=== PATIENT | male | born 1995 | race Caucasian/White ===

== ENCOUNTER 2019-06-21 12:35 | Emergency (ER) | payer MEDICAID ==
[~2019-06-21] VITALS: Ht 162.6 cm; Wt 72.7 kg
[2019-06-21] MEDS ORDERED: HEART MEDICATIONS PO (12:53)
[2019-06-21 16:12] VITALS: BP 131/76
== END 2019-06-21 16:43 | disposition home or self-care (01) ==
LOC: EMS 12:41
DX: T59.891A Toxic effect of other specified gases, fumes and vapors, accidental (unintentional), initial encounter (principal); I10 Essential (primary) hypertension; Z79.899 Other long term (current) drug therapy; Y92.89 Other specified places as the place of occurrence of the external cause
CPT/HCPCS: 93005

== ENCOUNTER 2021-07-12 02:06 | Emergency (ER) | payer SELFPAY ==
[~2021-07-12] VITALS: Ht 172.7 cm; Wt 81.8 kg
[~2021-07-12 02:06] MED LIST: HEART MEDICATIONS PO
[2021-07-12 03:07] LABS: BASOPHILS % (AUTO) 0.6 % (0.0-2.0); EOSINOPHILS % (AUTO) 1.4 % (1.0-6.0); HEMATOCRIT 44.1 % (41-53); HEMOGLOBIN 14.4 g/dL (13.5-17.5); LYMPHOCYTES # (AUTO) 1.5 K/uL (1.0-4.8); LYMPHOCYTES % (AUTO) 22.4 % (22.0-44.0); MEAN CORPUSCULAR HGB CONC 32.8 G/dL (31.0-37.0); MEAN CORPUSCULAR VOLUME 85 fL (80-100); MONOCYTES # (AUTO) 0.6 K/uL (0.1-1.0); MONOCYTES % (AUTO) 8.1 % (2.0-9.0); NEUTROPHILS # (AUTO) 4.6 K/uL (1.8-7.7); NEUTROPHILS % (AUTO) 67.5 % (40.0-70.0); PLATELET COUNT (AUTO) 173 K/uL (150-450); RED BLOOD CELL COUNT(AUTO) 5.16 MIL/uL (4.50-5.90); RED CELL DISTRIBUTION WIDTH 14.2 % (11.5-14.5)
[2021-07-12 03:11] LABS: ANION GAP 8 mmol/L (8-16); CALCIUM, TOTAL 9.3 mg/dL (8.8-10.5); CARBON DIOXIDE 28 mmol/L (22-29); CHLORIDE 106 mmol/L (98-107); CREATININE 0.92 mg/dL (0.60-1.30); GLOMERULAR FILTR. RATE CALC > 60 mL/min (>60); GLUCOSE,RANDOM 125 mg/dL (70-110); POTASSIUM 4.1 mmol/L (3.5-5.1); SODIUM SERUM 142 mmol/L (136-145); UREA NITROGEN, BLOOD 11 mg/dL (7-18)
[2021-07-12 03:12] LABS: APPEARANCE,URINE CLEAR (CLEAR); BILIRUBIN,URINE NEGATIVE (NEGATIVE); GLUCOSE, URINE (UA) NEGATIVE (NEGATIVE); KETONES,URINE NEGATIVE (NEGATIVE); LEUKOCYTE ESTERASE ,URINE NEGATIVE (NEGATIVE); NITRATE,URINE NEGATIVE (NEGATIVE); OCCULT BLOOD,URINE NEGATIVE (NEGATIVE); PH,URINE 6.5 (5.0-8.0); PROTEIN,URINE NEGATIVE (NEGATIVE); UROBILINOGEN,URINE 0.2 mg/dL (<=1.0)
[2021-07-12 03:25] LABS: ALANINE AMINOTRANSFERASE 77 U/L (12-78); ALBUMIN 3.8 g/dL (3.4-5.0); ALKALINE PHOSPHATASE 91 U/L (46-116); ASPARTATE AMINOTRANSFERASE 40 U/L (15-37); BILIRUBIN,TOTAL 0.1 mg/dL (0.1-1.0); CREATINE KINASE, TOTAL ONLY 585 U/L (39-308); LIPASE 114 U/L (73-393); PHOSPHORUS 3.5 mg/dL (2.5-4.9); TOTAL PROTEIN, SERUM 7.4 g/dL (6.4-8.2)
[2021-07-12 03:30] LABS: B-TYPE NATRIURETIC PEPTIDE < 4 pg/mL (0-100)
[2021-07-12] MEDS ORDERED: MAG HYDROX/AL HYDROX/SIMETH 30 ML SUSP UDCUP PO ONE (04:00)
[2021-07-12] MEDS ORDERED: ONDANSETRON HCL 4 MG TABLET PO ONE (04:00)
[2021-07-12] MEDS ORDERED: FAMOTIDINE 20 MG TABLET PO ONE (04:00)
[2021-07-12 04:28] VITALS: BP 123/78
== END 2021-07-12 04:32 | disposition home or self-care (01) ==
LOC: EMS 02:07
DX: R00.2 Palpitations (principal); I10 Essential (primary) hypertension; F41.9 Anxiety disorder, unspecified; F12.90 Cannabis use, unspecified, uncomplicated; Z79.899 Other long term (current) drug therapy
CPT/HCPCS: 36415; 71045; 80053; 81003; 82550; 83690; 83735; 83880; 84100; 84484; 85025; 93005; 99285; Q0162